=== PATIENT | male | born 1985 | race American Indian/Alaskan Native ===

== ENCOUNTER 2019-07-05 09:48 | Outpatient (CLI) | payer OTHER ==
--- NOTE | 2019-07-05 10:50 | XRay Report ---
LEFT HIP, 2 VIEWS INDICATION: Left hip pain status post fall in 2016. COMPARISON: None. IMPRESSION: No acute osseous or soft tissue abnormality. Chronic healed fractures of the pubic jarvis jose m and left superior pelvic ramus are suspected, correlate with history. The left hemipelvis appears mildly deformed. There is normal articulation at the left hip. The joint space is within normal limi ts. No osteonecrosis. LEFT FOOT, 2 VIEWS INDICATION: Left foot pain. COMPARISON: None. IMPRESSION: Moderate osteopenia is evident. There is been previous internal fixation of the left cintia caneus. Please correlate with surgical history. No evidence for acute fracture or erosive joint path ology. 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 LEFT ANKLE, 2 VIEWS INDICATION: Left ankle pain. COMPARISON: None. IMPRESSION: Osteopenia is noted. No evidence for fracture or bone lesion. Mild joint space narrowin g is noted at the ankle joint. Surgical clips are noted posterior laterally overlying the course of t he posterior tibial tendon, correlate with surgical history. Signer Name: Francisco J Hernandez Jr, MD Signed: 07/05/2019 10:45 AM Workstation Name: [id number]
== END 2019-07-05 09:49 | disposition home or self-care (01) ==
LOC: XRAY 09:48
PROVIDERS: ATTEND Internal Medicine
DX: Z02.71 Encounter for disability determination (principal); M19.072 Primary osteoarthritis, left ankle and foot; M85.872 Other specified disorders of bone density and structure, left ankle and foot; M25.552 Pain in left hip